=== PATIENT | female | born 2000 | race African-American/Black ===

== ENCOUNTER 2021-10-26 09:34 | Emergency (ER) | payer SELFPAY ==
[~2021-10-26] VITALS: Ht 162.6 cm; Wt 73.9 kg
[2021-10-26] MEDS ORDERED: IBUPROFEN600 MG PO (11:07)
[2021-10-26] MEDS ORDERED: AUGMENTIN 875-1 EACH PO (11:07)
== END 2021-10-26 11:14 | disposition home or self-care (01) ==
LOC: ER 09:50
DX: H66.91 Otitis media, unspecified, right ear (principal)
CPT/HCPCS: 99282